=== PATIENT | female | born 1975 | race African-American/Black ===

== ENCOUNTER 2020-01-10 19:46 | Emergency (ER) | payer OTHER ==
[~2020-01-10] VITALS: Ht 167.6 cm; Wt 111.1 kg
--- NOTE | 2020-01-10 20:11 | NUR ---
PT TAKEN TO BED 12
[2020-01-10 20:22] VITALS: BP 118/72
--- NOTE | 2020-01-10 20:25 | NUR ---
URINE SAMPLE AT BEDSIDE.
--- NOTE | 2020-01-10 20:53 | NUR ---
PT STATES SHE STARTED HAVING INTERMITTENT STABBING CHEST PAIN TO THE MIDSTERNAL AREA AT 11AM THIS MORNING. DENIES ANY RADIATION, NO N/T, NO N/V. PT STATES SHE'S NEVER HAD THIS PAIN BEFORE. DENIES SOB, AFEBRILE, NO COUGH. RESPIRATIONS REGULAR AN UNLABORED. BED IN LOWEST POSITION AND SIDERAIL UP X 1. [facility] HX - DIABETES
--- NOTE | 2020-01-10 20:54 | NUR ---
MD VINCENT AT BEDSIDE
[2020-01-10 20:56] LABS: BASOPHILS # (AUTO) 0.1 K/uL (0.00-0.22); BASOPHILS % (AUTO) 1.1 % (0.0-2.0); EOSINOPHILS # (AUTO) 0.1 K/uL (0-0.4); EOSINOPHILS % (AUTO) 0.7 % (0.0-4.0); HEMATOCRIT 34.1 % (36-48); HEMOGLOBIN 11.1 g/dL (12.0-16.0); LYMPHOCYTES % (AUTO) 35.5 % (20.5-51.1); MEAN CORPUSCULAR HEMOGLOBIN 27 pg (27-31); MEAN CORPUSCULAR HGB CONC 33 g/dL (33-37); MEAN CORPUSCULAR VOLUME 82.9 fL (80-94); MONOCYTES # (AUTO) 0.5 K/uL (0.8-1.0); MONOCYTES % (AUTO) 5.9 % (1.7-9.3); NEUTROPHILS # (AUTO) 4.8 K/uL (1.8-7.7); NEUTROPHILS % (AUTO) 56.8 % (42.2-75.2); PLATELET COUNT (AUTO) 360 K/uL (140-450); RED BLOOD CELL COUNT(AUTO) 4.11 MIL/uL (4.20-5.40); WHITE BLOOD COUNT (AUTO) 8.5 K/uL (4.8-10.8)
[2020-01-10 21:02] LABS: ANION GAP 16.5 (8-16); CREATININE 1.2 mg/dL (0.6-1.3); POTASSIUM 3.5 mmol/L (3.5-5.1)
[2020-01-10 21:08] LABS: ALBUMIN 3.1 g/dL (3.4-5.0); TOTAL BILIRUBIN 0.3 mg/dL (0.0-1.0)
[2020-01-10] MEDS ORDERED: NAPROXEN 500 MG TAB PO SCH (21:20)
[2020-01-10] MEDS ORDERED: IBUPROFEN 600 MG TAB PO ONE (21:35)
== END 2020-01-10 22:10 | disposition home or self-care (01) ==
LOC: MED 19:46
DX: R07.9 Chest pain, unspecified (principal); E11.9 Type 2 diabetes mellitus without complications
CPT/HCPCS: 36415; 71045; 80053; 83880; 84484; 85025; 93005; 99284; 99285